=== PATIENT | female | born 1980 | race Two or more races ===

== ENCOUNTER → 2025-08-18 | Outpatient (CLI) | payer MEDICAID, SELFPAY ==
--- NOTE | 2025-08-18 15:15 | XR_ITS ---
Examination: Screening digital mammography, bilateral Computer aided detection 3-D breast Tomosynthesis, bilateral Date and time of exam: August 18, 2025, 1532 hours, compared to mammograms dating to 08/07/2021 Indication: Screening Technique: Nonmagnified MLO, CC views of the breasts to been obtained, reconstructed from 3-D Tomosynthesis images. R2 computer aided detection program utilized for evaluation of suspicious masses and/or abnormal calcifications. 3-D Tomosynthesis images obtained. Findings: The breasts are heterogeneously dense, which may obscure small masses Circumscribed nodule upper outer left breast 26 mm which matches the breasts to cysts described on left breast sonogram February 03, 2023 Benign calcifications Impression: BI-RADS Category 0: Incomplete: Need additional imaging evaluation Recommend bilateral breast sonography follow-up to confirm breast cystic disease including 26 mm cyst in the upper outer left breast corresponding to the nodule described above
== END | disposition home or self-care (01) ==
PROVIDERS: PCP Specialist; Referring Provider Specialist; Visit Provider Specialist
DX: Z12.31 Encounter for screening mammogram for malignant neoplasm of breast (principal); N60.02 Solitary cyst of left breast; R92.8 Other abnormal and inconclusive findings on diagnostic imaging of breast
CPT/HCPCS: 77063; 77067

== ENCOUNTER → 2025-11-01 | Outpatient (CLI) | payer MEDICAID, SELFPAY ==
--- NOTE | 2025-11-01 11:30 | XR_ITS ---
Examination: Breast ultrasound complete, bilateral Date and time of exam: November 01, 2025, 11:11 a.m. INDICATIONS: Mammogram August 18, 2025 26 mm circumscribed nodule upper outer left breast, history breast cystic disease on ultrasound examinations Technique: Real-time grayscale ultrasonographic imaging bilateral breasts, including all 4 quadrants as well as nipple retroareolar and axillary regions. Findings: Sonographic images right breast 11:00 cyst 15 x 16 mm No solid nodules Sonographic images left breast 12:00 cyst 7 x 7 mm internal echoes 1:00 cyst 26 x 19 mm internal echoes 10:00 cyst 10 x 11 mm internal echoes No solid nodules Smaller bilateral cysts IMPRESSION: BI-RADS Category 2: Benign findings including benign cyst likely corresponding to the mammographic abnormality
== END | disposition home or self-care (01) ==
LOC: CDIM 10:57
PROVIDERS: PCP Physician Assistant; Referring Provider Physician Assistant; Visit Provider Physician Assistant
DX: N63.20 Unspecified lump in the left breast, unspecified quadrant (principal)
CPT/HCPCS: 76641